=== PATIENT | female | born 1995 | race Hispanic/Latino ===

== ENCOUNTER 2019-03-10 12:25 | Observation (INO) | payer BC ==
[~2019-03-10] VITALS: Ht 162.6 cm; Wt 46.7 kg
[~2019-03-10 12:25] MED LIST: BENTYL10 MG PO; NEXIUM20 MG PO; NEXIUM40 MG PO; NORCO 5-325 TA1 EACH PO; ZOFRAN ODT4 MG SL; tylenol liquid PO
--- OUTSIDE RECORDS SUMMARY | 2019-03-10 12:29 | XMS REPORT | Encounter Summary ---
Author Organization Unknown Address [address] [place] [address] Phone [phone] Care Team Providers Care Ammonia Technician Name Role Phone Hermann Elizalde 3 [phone] Reason for Visit Medical Complaint Instructions 1. Acute upper respiratory infection Bromfed DM 2 mg-30 mg-10 mg/5 mL syrup 2. Feeling feverish rapid flu (A+B) 3. Pain in throat rapid strep group A, throat Discussion Note: None recorded. Patient educational handouts: No information available. Plan of Care Patient Instructions take bromfed as needed. it can cause drowsiness. do not drive will on this medication. follow up pcp Reminders Provider Appointments None recorded. Lab Rapid Flu (A+B) 01/04/2017 [facility] Rapid Strep Group a, Throat 01/04/2017 [facility] Referral None recorded. Procedures None recorded. Surgeries None recorded. Imaging None recorded. Medications Name Start Date Bromfed DM 2 mg-30 mg-10 mg/5 mL syrup Take 10 mL every 4 hours by oral route as needed. Fluzone Quad 1552-0420 60 mcg (15 mcg x 4)/0.5 mL IM suspension IMMUNIZATION GIVEN Medications Administered None recorded. Vitals Height Weight BMI Blood Pressure 5 ft 3 in 115 lbs 20.4 110/60 Lab Results Date Name Result Description Value Range Status Rapid Strep Group a, Throat Result negative Swab Location Left and Right tonsillar pillars Rapid Flu (A+B) Influenza a negative Influenza B negative Allergies Name Reaction Severity Onset NKDA Problems Name Status Onset Date Source Tinea Corporis Active Encounter Acute Sinusitis Active Encounter Tonsillitis Active Encounter Procedures None recorded. Vaccine List Vaccine Type influenza, injectable, quadrivalent 06/19/2016 meningococcal MCV4P 11/13/20150.5 mL tetanus toxoid, unspecified formulation 05/19/2010 Social History Smoking Status Never Smoker Past Encounters 01/04/2017 Acute Upper Respiratory Infection; Feeling Feverish; Pain in Throat MARIN Tapia-C: [address] [place] [address], Ph. History of Present Illness Rrmxe-Gzlkjoibkz-Clcrajs Reported By: Patient HPI: Location: throat. Quality: sore throat, dry cough. Duration: 3days. Severity: moderate. Onset/Timing: gradual. Context: no foreign travel, non-smoker, sick contact. Modifying factors: OTC medication. Associated Symptoms: no sputum production, no shortness of breath, no wheezing, no change in number of pillows needed to sleep at night, no sweats, no significant weight gain, no significant weight loss, no morning cough, no vomiting, no diarrhea, no rash, no nausea, no fever, no headache, sore throat, muscle aches Review of Systems:ROS as noted in the HPI Review of Systems Basic Reported By: Patient Physical Exam Adult Basic, Adult Female Complete, 14-21 Yr Females Reported By: Patient Constitutional: General Appearance: healthy-appearing, well-nourished, well-developed. Level of Distress: NAD. Ambulation: ambulating normally Psychiatric: Mental Status: active and alert Eyes: Lids and Conjunctivae: non-injected, no discharge Kdy-Inrv-Exghd-Throat: Ears: no lesions on external ear, no outer ear tenderness, EACs clear, TMs clear, TM mobility normal. Hearing: no hearing loss. Nose: no lesions on external nose; congestion. Lips, Teeth, and Gums: no mouth or lip ulcers. Oropharynx: moist mucous membranes, no erythema, no exudates, tonsils not enlarged Neck: Neck: trachea midline. Lymph Nodes: no cervical LAD Lungs: Respiratory effort: no dyspnea, no tachypnea, no use of accessory muscles, no intercostal retractions. Auscultation: breath sounds normal, clear to auscultation, no wheezing, no rales/crackles, no rhonchi, no retractions Cardiovascular: Heart Auscultation: RRR, no murmurs
--- OUTSIDE RECORDS SUMMARY | 2019-03-10 12:29 | XMS REPORT | Encounter Summary ---
Author Organization Unknown Address [address] [place] [address] Phone [phone] Care Team Providers Care Rn Perinatal Name Role Phone Hermann Elizalde 3 [phone] Reason for Visit Medical Complaint Instructions 1. Viral upper respiratory tract infection fluticasone 50 mcg/actuation nasal spray,suspension levocetirizine 5 mg tablet 2. Influenza-like symptoms rapid flu (A+B) 3. Pain in throat rapid strep group A, throat sore throat: care instructions Discussion Note Pt is in NAD; Verbalizes understanding of all instructions with no questions at this time. Plan of Care Patient Instructions Stop benadryl. Take fluticasone as needed for congestion. [place] one spray in each nostril twice a day. Take a warm, steamy shower, blow your nose thereafter, and spray in each nostril. Tilt your head up for about 10 seconds and breath through your mouth. Do not sniff or snort the medication in or else the medication will go to your throat and not be absorbed appropriately. Take levocetirizine for runny nose, sneezing, and/or watery eyes. Alternate with Ibuprofen and acetaminophen every 4-6 hrs as needed for pain/fever/headache. Proper hydration and rest. Return to work/school if free of fever for 24-hrs. Do not share any utensils/cups, no kissing, recommend hand washing after coughing/sneezing/blowing nose and cover face when you do so. Take medications as prescribed. Follow up with your PCP within 2-3 days if symptoms worsen as discussed. Reminders Provider Appointments None recorded. Lab Rapid Strep Group a, Throat 11/05/2018 [facility] Rapid Flu (A+B) 11/05/2018 [facility] Referral None recorded. Procedures None recorded. Surgeries None recorded. Imaging None recorded. Medications Name Start Date fluticasone 50 mcg/actuation nasal spray,suspension [place] 2 sprays every day by intranasal route at bedtime for 14 days. Fluzone Quad 8231-3210 60 mcg (15 mcg x 4)/0.5 mL IM suspension IMMUNIZATION GIVEN levocetirizine 5 mg tablet Take 1 tablet every day by oral route at bedtime for 10 days. tetanus-diphtheria toxoids-Td 2 Lf unit-2 Lf unit/0.5 mL IM suspension IMMUNIZATION GIVEN Medications Administered None recorded. Vitals Height Weight BMI Blood Pressure 5 ft 3 in 115 lbs 20.4 kg/m2 106/66 mm[Hg] Lab Results Date Name Specimen Result Interpretation Description Value Range Status Address Rapid Flu (A+B) Influenza a negative [facility]: [address] [place] [address] Influenza B negative [facility]: [address] [place] [address] Rapid Strep Group a, Throat Result negative [facility]: [address] [place] [address] Swab Location Left and Right tonsillar pillars [facility]: [address] [place] [address] Allergies Code Code System Name Reaction Severity Status Onset NKDA Problems Name Status Onset Date Source Pain in Throat Active 11/05/2018 Viral Upper Respiratory Tract Infection Active 11/05/2018 Influenza-like Symptoms Active 11/05/2018 Procedures None recorded. Vaccine List Vaccine Type influenza, injectable, quadrivalent 06/20/2016 influenza, unspecified formulation 08/20/2018 meningococcal MCV4P 11/13/20150.5 mL Td (adult) 06/25/2017 tetanus toxoid, unspecified formulation 05/20/2010 Social History Smoking Status Never Smoker Past Encounters 11/05/2018 Viral Upper Respiratory Tract Infection; Influenza-like Symptoms; Pain in Throat Na Hart [facility]: [address] [place] [address], Ph. History of Present Illness Cegpgeg-Gwrte-Cbn Reported By: Patient HPI: Duration: 4 days. Severity: highest temperature 99.2. Onset/Timing: first recorded 11-05-18 in clinic. Context: no ill contacts, no tick/insect bites, no recent travel, no new medications. Associated Symptoms: no muscle aches, no rash, no lethargy, fever/chills, headache, cold symptoms, nasal passage blockage (stuffiness), nasal discharge; sneezing, mild sore throat, and body aches. Modifying Factors nothing gives relief Review of Systems:ROS as noted in the HPI Review of Systems Basic Reported By: Patient Physical Exam Adult Basic, Adult Male Complete Reported By: Patient Constitutional: General Appearance: healthy-appearing, well-nourished, well-developed. Level of Distress: NAD. Ambulation: ambulating normally Psychiatric: Mental Status: active and alert. Orientation: to time, to place, to person Eyes: Lids and Conjunctivae: non-injected, no discharge, no pallor. Corneas: grossly intact. Lens: clear Yom-Uspr-Chahg-Throat: Ears: no lesions on external ear, no outer ear tenderness, EACs clear, TMs clear. Hearing: no hearing loss. Nose: no lesions on external nose, nares patent, no septal deviation, nasal passages clear, no sinus tenderness, nasal discharge--rhinorrhea, post nasal drip; B/L NTs pink and edematous. Lips, Teeth, and Gums: no mouth or lip ulcers, no bleeding gums, normal dentition. Oropharynx: moist mucous membranes, no erythema, no exudates, tonsils not enlarged Neck: Neck: supple. Lymph Nodes: no cervical LAD Lungs: Respiratory effort: no dyspnea, no tachypnea, no use of accessory muscles, no intercostal retractions. Auscultation: breath sounds normal, good air movement Cardiovascular: Heart Auscultation: RRR, no murmurs Neurologic: Gait and Station: normal gait, normal station. Cranial Nerves: grossly intact
--- OUTSIDE RECORDS SUMMARY | 2019-03-10 12:29 | XMS REPORT | Encounter Summary ---
Author Organization Unknown Address [address] [place] [address] Phone [phone] Care Team Providers Care Gas Pumper Name Role Phone Hermann Elizalde 3 [phone] Reason for Visit Medical Complaint Instructions 1. [...] by oral route as needed. Fluzone Quad [id number] 60 mcg (15 mcg x 4)/0.5 mL [...] Feverish; Pain in Throat MARIN Tapia-C: [address] [place] [address], Ph. History of Present Illness Tgcqp-Dmzgailgfm-Dwmwgxs Reported By: Patient HPI: Location: throat. Quality: [...] Eyes: Lids and Conjunctivae: non-injected, no discharge Kct-Aruz-Touky-Throat: Ears: no lesions on external ear, no [...]
--- OUTSIDE RECORDS SUMMARY | 2019-03-10 12:29 | XMS REPORT | Continuity of Care Document ---
Author Author [facility] Interface Address Unknown Phone Unavailable Problems Problem Status Onset Date Classification Date Reported Comments Source Pain in throat 11/05/2018 Diagnosis 11/05/2018 [facility] Influenza-like symptoms 11/05/2018 Diagnosis 11/05/2018 [facility] Viral upper respiratory tract infection 11/05/2018 Diagnosis 11/05/2018 [facility] Pain in Throat 11/05/2018 Problem 11/05/2018 [facility] Viral Upper Respiratory Tract Infection 11/05/2018 Problem 11/05/2018 [facility] Influenza-like Symptoms 11/05/2018 Problem 11/05/2018 [facility] Pruritic rash 08/17/2017 Diagnosis 08/17/2017 [facility] Acute upper respiratory infection 01/04/2017 Diagnosis 01/04/2017 [facility] Feeling feverish 01/04/2017 Diagnosis 01/04/2017 [facility] Tinea Corporis Problem 08/17/2017 [facility] Acute Sinusitis Problem 08/17/2017 [facility] Tonsillitis Problem 08/17/2017 [facility] Medications Medication Details Route Status Patient Instructions Ordering Provider Order Date Source influenza A virus A/[place] (H1N1) antigen 0.03 MG/ML / influenza A virus A/[id number] (H3N2) antigen 0.03 MG/ML / influenza B virus B/[place] antigen 0.03 MG/ML / influenza B virus B/[facility] antigen 0.03 MG/ML Injectable Suspension Fluzone Quad 2014- 2015 60 mcg (15 mcg x 4)/0.5 mL IM suspension IMMUNIZATION GIVEN Active [facility] Hydroxyzine Hydrochloride 25 MG Oral Tablet hydroxyzine HCl 25 mg tablet 1/2-1 tab po every 6 hrs prn itching Active [facility] Medrol (Eric) 4 mg tablets in a dose pack Medrol (Eric) 4 mg tablets in a dose pack Take by oral route as directed on package Active [facility] Fluticasone propionate 0.05 MG/ACTUAT Metered Dose Nasal [place] fluticasone 50 mcg/actuation nasal spray,suspension [place] 2 sprays every day by intranasal route at bedtime for 14 days. Active [facility] levocetirizine dihydrochloride 5 MG Oral Tablet levocetirizine 5 mg tablet Take 1 tablet every day by oral route at bedtime for 10 days. Active [facility] 0.5 ML diphtheria toxoid vaccine, inactivated 4 UNT/ML / tetanus toxoid vaccine, inactivated 4 UNT/ML Injection tetanus-diphtheria toxoids- Td 2 Lf unit-2 Lf unit/0.5 mL IM suspension IMMUNIZATION GIVEN Active [facility] Brompheniramine Maleate 0.4 MG/ML / Dextromethorphan Hydrobromide 2 MG/ML / Pseudoephedrine Hydrochloride 6 MG/ML Oral Solution [Bromfed DM] Bromfed DM 2 mg-30 mg-10 mg/5 mL syrup Take 10 mL every 4 hours by oral route as needed. Active [facility] Allergies, Adverse Reactions, Alerts Substance Category Reaction Severity Reaction type Status Date Reported Comments Source Immunizations Immunization Date Given Site Status Last Updated Comments Source influenza, unspecified formulation 08/20/2018 completed [facility] Td (adult) 06/25/2017 completed [facility] influenza, injectable, quadrivalent 06/20/2016 completed [facility] meningococcal MCV4P 11/13/2015 completed [facility] tetanus toxoid, unspecified formulation 05/20/2010 completed [facility] Results Order Name Results Value Reference Range Date Interpretation Comments Source Influenza A negative 11/05/2018 [facility] Influenza B negative 11/05/2018 [facility] RESULT negative 11/05/2018 [facility] SWAB LOCATION Left and Right tonsillar pillars 11/05/2018 [facility] RESULT negative 08/17/2017 [facility] SWAB LOCATION Left and Right tonsillar pillars 08/17/2017 [facility] RESULT negative 01/04/2017 [facility] SWAB LOCATION Left and Right tonsillar pillars 01/04/2017 [facility] Influenza A negative 01/04/2017 [facility] Influenza B negative 01/04/2017 [facility] Vital Signs Vital Sign Value Date Comments Source Diastolic (mm Hg) 66 11/05/2018 [facility] Height 63 11/05/2018 [facility] Systolic (mm Hg) 106 11/05/2018 [facility] Weight 115 11/05/2018 [facility] Diastolic (mm Hg) 80 08/17/2017 [facility] Height 63 08/17/2017 [facility] Systolic (mm Hg) 132 08/17/2017 [facility] Weight 115 08/17/2017 [facility] Diastolic (mm Hg) 60 01/04/2017 [facility] Height 63 01/04/2017 [facility] Systolic (mm Hg) 110 01/04/2017 [facility] Weight 115 01/04/2017 [facility] Encounters Location Location Details Encounter Type Encounter Number Reason For Visit Attending Provider ADM Date DC Date Status Source [place] - [facility] - [id number] ART TapiaP-C: [address], [place] [address], Ph. [id number] Rashawn Red 01/04/2017 [facility] [place] - [facility] - [id number] ART TapiaP-C: [address], [place] [address], Ph. [id number] Rashawn Red 01/04/2017 [facility] [place] - [facility] - [id number] FRANTZ AndersonC: [address], [place] [address], Ph. [id number] Akosua Medellin 08/17/2017 [facility] [place] - [facility] - [id number] Na Hart [employer] D[employer] MACHINE TENDER-C: [address], [place] [address], Ph. [id number] Na Hart 11/05/2018 [facility] Procedures Procedure Code Date Perfomer Comments Source
--- OUTSIDE RECORDS SUMMARY | 2019-03-10 12:29 | XMS REPORT | Encounter Summary ---
Author Organization Unknown Address [address] [place] [address] Phone [phone] Care Team Providers Care Sap Ppm Consultant Name Role Phone Hermann Elizalde 3 [phone] Reason for Visit Medical Complaint Instructions 1. Pruritic rash rapid strep group A, throat Medrol (Eric) 4 mg tablets in a dose pack hydroxyzine HCl 25 mg tablet Discussion Note: None recorded. Patient educational handouts: No information available. Plan of Care Reminders Provider Appointments None recorded. Lab Rapid Strep Group a, Throat 08/17/2017 [facility] Referral None recorded. Procedures None recorded. Surgeries None recorded. Imaging None recorded. Medications Name Start Date Fluzone Quad [id number] 60 mcg (15 mcg x 4)/0.5 mL IM suspension IMMUNIZATION GIVEN hydroxyzine HCl 25 mg tablet 1/2-1 tab po every 6 hrs prn itching Medrol (Eric) 4 mg tablets in a dose pack Take by oral route as directed on package Medications Administered None recorded. Vitals Height Weight BMI Blood Pressure 5 ft 3 in 115 lbs 20.4 kg/m2 132/80 mm[Hg] Lab Results Date Name Specimen Result Interpretation Description Value Range Status Address Rapid Strep Group a, Throat Result negative [facility]: [address] [place] [address] Swab Location Left and Right tonsillar pillars [facility]: [address] [place] [address] Allergies Code Code System Name Reaction Severity Status Onset NKDA Problems Name Status Onset Date Source Tinea Corporis Active Encounter Acute Sinusitis Active Encounter Tonsillitis Active Encounter Procedures None recorded. Vaccine List Vaccine Type influenza, injectable, quadrivalent 06/20/2016 meningococcal MCV4P 11/13/20150.5 mL tetanus toxoid, unspecified formulation 05/20/2010 Social History Smoking Status Never Smoker Past Encounters 08/17/2017 Pruritic Rash Akosua Medellin PA-C: [address] [place] [address], Ph. History of Present Illness Ejjy-Oqeizqs-Glwiw-Skin Lesion-Bite 1 Reported By: Patient HPI: Location: abdomen, back. Quality: itchy, red. Duration: has noted for 1-2 weeks. Onset/Timing: gradual onset. Context: no new detergents or skin products, no one else with similar rash, no sting or bite; putting OTC itch ointment, saw dermatology for similar rash years ago, no diagnosis was able to be made, rash resolved in 3 months. Aggravating factors: nothing makes it worse. Alleviating factors: nothing gives relief. Associated Symptoms: no fever/chills, no muscle aches, no headache, no cold symptoms, no nausea, no vomiting, no diarrhea, no urinary symptoms Review of Systems Basic Reported By: Patient Constitutional: Constitutional: no fever Eyes: Eyes: no eye complaints Waiw-Olju-Pdupj-Throat: Ears: no ear complaints. Nose: no nose/sinus problems. Mouth/Throat: no sore throat Cardiovascular: Cardiovascular: no chest pain, no shortness of breath, no known heart murmur Respiratory: Respiratory: no cough, no wheezing, no shortness of breath Gastrointestinal: Gastrointestinal: no abdominal pain, no vomiting / diarrhea Musculoskeletal: Musculoskeletal: no muscle aches, no arthralgias/joint pain, no back pain Skin: Skin: rash, itching Neurologic: Neurologic: no dizziness, no headaches Physical Exam Adult Basic, 14-21 Yr Females Reported By: Patient Constitutional: General Appearance: healthy-appearing, well-nourished, well-developed. Ambulation: ambulating normally Psychiatric: Mental Status: active and alert, normal affect, normal mood. Orientation: to time, to place, to person Eyes: Lids and Conjunctivae: non-injected, no discharge Pgl-Nrcx-Edwgh-Throat: Ears: no lesions on external ear, no outer ear tenderness, EACs clear, TMs clear. Nose: no lesions on external nose, nares patent, no septal deviation, nasal passages clear, no sinus tenderness, no nasal discharge. Lips, Teeth, and Gums: no mouth or lip ulcers. Oropharynx: moist mucous membranes, no exudates, tonsils not enlarged, erythema Neck: Neck: supple, trachea midline, no masses, FROM. Lymph Nodes: no cervical LAD Lungs: Respiratory effort: no dyspnea, no tachypnea, no use of accessory muscles, no intercostal retractions. Auscultation: breath sounds normal, clear to auscultation, no wheezing, no rales/crackles, no rhonchi, no retractions Cardiovascular: Heart Auscultation: RRR, no murmurs, no gallops, no rub Musculoskeletal:: Extremities: no cyanosis, no edema Skin: Inspection and palpation: rash
[2019-03-10] MEDS ORDERED: SODIUM CHLORIDE 0.9% 1000ML 1,000 ML ONE (12:41)
[2019-03-10] MEDS ORDERED: SODIUM CHLORIDE 0.9% 1000ML 1,000 ML IV ONE (12:45)
[2019-03-10] MEDS ORDERED: LORAZEPAM INJ 2 MG/ML VIAL IV ONE ×3 (12:45→15:00)
[2019-03-10] MEDS ORDERED: METOPROLOL TARTRATE INJ 1 MG/ML VIAL IV ONE (15:00)
[2019-03-10 15:30] LABS: BASOPHILS % 0.1 % (0.0-1.0); EOSINOPHILS # (AUTO) 0.1 (0.0-0.4); EOSINOPHILS % 0.7 % (0.0-6.0); HEMATOCRIT 36.8 % (34.2-44.1); HEMOGLOBIN 13.6 g/dL (12.0-16.0); LYMPHOCYTES # (AUTO) 2.2 (1.0-3.2); LYMPHOCYTES % 24.5 % (18.0-39.1); MEAN CORPUSCULAR HEMOGLOBIN 34.1 pg (28-32); MEAN CORPUSCULAR VOLUME 92.2 fL (81-99); MONOCYTES # (AUTO) 0.4 (0.2-0.8); MONOCYTES % 4.7 % (4.4-11.3); NEUTROPHILS # (AUTO) 6.2 (2.1-6.9); NEUTROPHILS % 69.9 % (38.7-80.0); PLATELET COUNT 165 x10e3/uL (140-360); RED BLOOD COUNT 3.99 x10e6/uL (3.6-5.1); RED CELL DISTRIBUTION WIDTH 11.6 % (11.7-14.4)
[2019-03-10 15:56] LABS: ALANINE AMINOTRANSFERASE 9 IU/L (0-55); ALBUMIN 3.8 g/dL (3.5-5.0); ALBUMIN/GLOBULIN RATIO 1.5 (0.8-2.0); ALKALINE PHOSPHATASE 60 IU/L (40-150); ANION GAP 9.2 mmol/L (8-16); BLOOD UREA NITROGEN 10 mg/dL (7-26); BUN/CREATININE RATIO 14 (6-25); CALCIUM 8.7 mg/dL (8.4-10.2); CARBON DIOXIDE 22 mmol/L (22-29); CHLORIDE 109 mmol/L (98-107); EST GLOMERULAR FILTRATION RATE > 60 ML/MIN (60-); GLUCOSE 100 mg/dL (74-118); MAGNESIUM 1.9 MG/DL (1.3-2.1); POTASSIUM 3.2 mmol/L (3.5-5.1); SODIUM 137 mmol/L (136-145)
--- NOTE | 2019-03-10 16:14 | Diagnostic Imaging Report ---
Exam: Head CT without contrast History: New onset seizure, anxiety. Comparison studies: None available on the PACS at the time of dictation. Technique: Axial images were obtained from the skull base to the vertex. Coronal and sagittal images reconstructed from the axial data. Dose modulation, iterative reconstruction, and/or weight based adjustment of the mA/kV was utilized to reduce the radiation dose to as low as reasonably achievable. Radiation dose: Total DLP: 1382 mGy*cm. Estimated effective dose: DLP x 0.015 Intravenous contrast: None Findings: Scalp: No abnormalities. Bones: No fractures, blastic or lytic lesions. Brain sulci: Appropriate for age. Ventricles: Normal in size and configuration. No hydrocephalus. Extra-axial spaces: No masses, no fluid collection. Parenchyma: No abnormal densities. No masses, hemorrhage, acute or chronic vascular insults. Sellar/suprasellar region: No abnormalities. Craniocervical junction: Patent foramen magnum. No Chiari one malformation. Incidental findings: Small nonspecific secretions in the right sphenoid sinus an small retention cyst or polyp in the right maxillary sinus IMPRESSION: No acute intracranial abnormalities. Signed by: Dr. Jt Encarnacion M.D. on 03/10/2019 4:10 PM
[2019-03-10] MEDS ORDERED: SODIUM CHLORIDE 0.9% 1000ML 1,000 ML IV STA (16:26)
[2019-03-10] MEDS ORDERED: ONDANSETRON HCL INJ 2MG/ML 2ML 2 MG/ML VIAL IV PRN (17:00)
[2019-03-10] MEDS ORDERED: LORAZEPAM INJ 2 MG/ML VIAL IV PRN (17:00)
[2019-03-10] MEDS ORDERED: SODIUM CHLORIDE FLUSH 10 ML SYR INJ PRN (17:00)
--- OUTSIDE RECORDS SUMMARY | 2019-03-10 17:07 | XMS REPORT ---
Author Author [facility] Address Unknown Phone Unavailable Care Team Providers Care Security Guard Name Role Phone Chetan CABALLERO Unavailable Unavailable Problems This patient has no known problems. Allergies, Adverse Reactions, Alerts This patient has no known allergies or adverse reactions. Medications This patient has no known medications. Results Test Description Test Time Test Comments Text Results Atomic Results Result Comments CT BRAIN WO 2019-03-10 16:01:00 [place] [address] Patient Name: DAXA THOMAS MR #: [id number] : 1995 Age/Sex: 24/F Req #: [id number] Adm Physician: Ordered by: RAMÍREZ CABALLERO MD Report #: [id number] Location: ER Room/Bed: Procedure: [id number] CT/CT BRAIN WO Exam Date: 03/10/19 Exam Time: 1500 REPORT STATUS: Signed Exam: Head CT without contrast History: New onset seizure, anxiety. Comparison studies: None available on the PACS at the time of dictation. Technique: Axial images were obtained from the skull base to the vertex. Coronal and sagittal images reconstructed from the axial data. Dose modulation, iterative reconstruction, and/or weight based adjustment of the mA/kV was utilized to reduce the radiation dose to as low as reasonably achievable. Radiation dose: Total DLP: 1382 mGy*cm. Estimated effective dose: DLP x 0.015 Intravenous contrast: None Findings: Scalp: No abnormalities. Bones: No fractures, blastic or lytic lesions. Brain sulci: Appropriate for age. Ventricles: Normal in size and configuration. No hydrocephalus. Extra-axial spaces: No masses, no fluid collection. Parenchyma: No abnormal densities. No masses, hemorrhage, acute or chronic vascular insults. Sellar/suprasellar region: No abnormalities. Craniocervical junction: Patent foramen magnum. No Chiari one malformation. Incidental findings: Small nonspecific secretions in the right sphenoid sinus an small retention cyst or polyp in the right maxillary sinus IMPRESSION: No acute intracranial abnormalities. Signed by: Dr. Cora Farooq M.D. on 03/10/2019 4:10 PM Dictated By: CORA FAROOQ MD [id number] Transcribed By: RENY on 03/10/19 1610 COPY TO: RAMÍREZ CABALLERO MD
[2019-03-10] MEDS ORDERED: POTASSIUM CHLORIDE 20 MEQ TAB CR PO ONE (18:30)
--- NOTE | 2019-03-10 18:41 | NUR ---
received pt in stretcher from ER. AAOx4, no c/o pain or SOB at this time. oriented to room and use of call light for assistance. call light placed within reach.
[2019-03-10] MEDS: PROPRANOLOL HCL 10 MG TAB PO SCH (18:48)
[2019-03-10 19:29] VITALS: BP 121/64
[2019-03-10 20:00] VITALS: BP 120/66
[2019-03-10 21:15] VITALS: BP 121/64
[2019-03-11] VITALS: BP 101/59
[2019-03-11 04:00] VITALS: BP 105/63
--- NOTE | 2019-03-11 06:38 | NUR ---
THE PATIENT IS LAYING IN BED REPORTS NO PAIN OR DISCOMFORT. BED LOW, WHEELS LOCKED AND CALL LIGHT WITHIN REACH. IV PATENT.
[2019-03-11 08:00] VITALS: BP 99/63
[2019-03-11] MEDS ORDERED: ACETAMINOPHEN 325 MG TAB PO PRN (08:00)
[2019-03-11] MEDS ORDERED: ONDANSETRON HCL INJ 2MG/ML 2ML 2 MG/ML VIAL IV PRN (08:00)
[2019-03-11 08:04] VITALS: BP 99/63
[2019-03-11] MEDS: PROPRANOLOL HCL 10 MG TAB PO SCH (08:14)
[2019-03-11 08:43] LABS: BASOPHILS % 0.2 % (0.0-1.0); EOSINOPHILS # (AUTO) 0.1 (0.0-0.4); EOSINOPHILS % 1.3 % (0.0-6.0); HEMATOCRIT 39.7 % (34.2-44.1); HEMOGLOBIN 14.7 g/dL (12.0-16.0); LYMPHOCYTES # (AUTO) 1.4 (1.0-3.2); LYMPHOCYTES % 26.3 % (18.0-39.1); MEAN CORPUSCULAR VOLUME 91.9 fL (81-99); MONOCYTES # (AUTO) 0.2 (0.2-0.8); NEUTROPHILS # (AUTO) 3.6 (2.1-6.9); NEUTROPHILS % 67.8 % (38.7-80.0); PLATELET COUNT 180 x10e3/uL (140-360); RED BLOOD COUNT 4.32 x10e6/uL (3.6-5.1); RED CELL DISTRIBUTION WIDTH 11.6 % (11.7-14.4)
[2019-03-11 09:06] LABS: ANION GAP 12.1 mmol/L (8-16); BLOOD UREA NITROGEN 7 mg/dL (7-26); BUN/CREATININE RATIO 10 (6-25); CALCIUM 9.8 mg/dL (8.4-10.2); CARBON DIOXIDE 23 mmol/L (22-29); CHLORIDE 107 mmol/L (98-107); EST GLOMERULAR FILTRATION RATE > 60 ML/MIN (60-); GLUCOSE 111 mg/dL (74-118); POTASSIUM 4.1 mmol/L (3.5-5.1); SODIUM 138 mmol/L (136-145)
[2019-03-11] MEDS ORDERED: LORAZEPAM 0.5 MG TAB PO PRN (09:45)
[2019-03-11 09:48] LABS: PREGNANCY TEST, URINE NEGATIVE (NEGATIVE)
[2019-03-11 09:56] LABS: BILIRUBIN,URINE NEGATIVE (NEGATIVE); CLARITY,URINE CLEAR (CLEAR); COLOR,URINE YELLOW (YELLOW); KETONES,URINE NEGATIVE (NEGATIVE); LEUKOCYTE ESTERASE ,URINE NEGATIVE (NEGATIVE); NITRITE,URINE NEGATIVE (NEGATIVE); PROTEIN,URINE DIPSTICK NEGATIVE (NEGATIVE); URINE UROBILINOGEN 0.2 mg/dL (0.2 - 1)
[2019-03-11 10:01] LABS: AMPHETAMINES SCREEN,URINE NEGATIVE (NEGATIVE); BENZODIAZEPINES SCREEN,URINE NEGATIVE (NEGATIVE); PHENCYCLIDINE SCREEN,URINE NEGATIVE (NEGATIVE)
[2019-03-11 10:04] LABS: BACTERIA,URINE FEW /HPF; EPITHELIAL CELLS,URINE MODERATE /LPF
[2019-03-11 12:09] VITALS: BP 105/64
[2019-03-11] MEDS ORDERED: CLONAZEPAM 0.5 MG TAB PO ONE (14:00)
[2019-03-11] MEDS ORDERED: CLONAZEPAM 0.5 MG TAB PO PRN (14:00)
[2019-03-11] MEDS ORDERED: CLONAZEPAM0.5 MG PO (16:19)
[2019-03-11] MEDS ORDERED: REMERON15 MG PO (16:20)
--- NOTE | 2019-03-11 16:35 | NUR ---
spoke to and received order to d/c patient home with work/school excuse to return 03/16/19. per Psychiatry, february d/c home and f/u in office in 1 week, RX left in chart.
[2019-03-11 16:44] VITALS: BP 112/72
--- NOTE | 2019-03-11 16:50 | History and Physical ---
CHIEF COMPLAINT: Anxiety, panic attacks. HISTORY OF PRESENT ILLNESS: This is a 24-year-old female, who apparently had history of panic attacks in the past, has not followed up with primary care physician or a psychiatrist, presents while she was there for yesterday with acute panic attack. Further, the patient reports that over the last one year, she has had six or seven episodes where she will suddenly have a panic attack, heart will start to raise. She is diaphoretic. Hates to be in very large spaces and is able to cope with by taking deep breaths and staying quiet. She does not take any medications for the panic attacks. She reports that these have been ongoing due to stress from work, home and many other issues as well. She denies any other complaints at home, except for lot of stress related to school work. Yesterday, she had similar findings in began to become very diaphoretic, tachypneic and tachycardic and was seen in the ER for further evaluation. There was no reports of any seizure-like activity. The patient has no seizure history in the past. The patient was alert, awake, oriented and conscious throughout these episodes and was able to comprehend exactly what the physicians in the ER were telling her. The patient was seen and evaluated at bedside on the medical floor. Currently, she is doing well with no other issues at this time. REVIEW OF SYSTEMS: Pertinent positive: History of panic attacks. Pertinent negative: Denies any chest pain, nausea, vomiting, diarrhea, dysuria, hematuria, frequency, urgency, lightheadedness, dizziness, abdominal pain, headaches, cough, congestion, fever, or any other complaints. The rest of 14-point review of systems are reviewed with the patient and are negative. ALLERGIES: CIPRO. HOME MEDICATIONS: She takes Bentyl 20 mg every 6 hours as needed, Zofran 4 mg sublingual q.6 hours p.r.n. for nausea. PAST MEDICAL HISTORY: Reports a history of panic attacks in the past. Has not seeked any treatment. PAST SURGICAL HISTORY: Reports none. FAMILY HISTORY: Hypertension, diabetes. SOCIAL HISTORY: No drugs. No alcohol. Does not smoke. Good social support. PHYSICAL EXAMINATION: VITAL SIGNS: Temperature is 97.7, pulse 78, respiratory rate is 18, blood pressure is pulse ox 98% on room air. GENERAL: Not in acute distress. Alert and oriented x3. Cooperative on examination. HEENT: Head is normocephalic and atraumatic. Eyes; pupils are equal, round, and reactive to light bilaterally. Extraocular movements are intact bilaterally. Throat, no evidence of any erythema or exudates in the posterior pharynx. Has poor dentition. NECK: Supple. Good range of motion. PULMONARY: Clear to auscultation bilaterally. No wheezing, no rales, no rhonchi, no crackles appreciated. CARDIOVASCULAR: Positive S1, S2. No murmurs, rubs, or gallops appreciated. ABDOMEN: Soft, nondistended, and nontender to palpation. Bowel sounds present. MUSCULOSKELETAL: Strength is 5/5 throughout. No evidence of any muscle deficits on examination. No weakness appreciated. NEUROLOGICAL: Cranial nerves II through XII grossly intact. No evidence of any neurological deficits on exam. SKIN: Intact. Warm to touch. Good cap refill. PSYCHIATRIC: Normal affect and mood. EXTREMITIES: No edema. Good range of motion throughout. LABORATORY DATA: Lab findings show white count of 5.2, hemoglobin 14.7, hematocrit 39, and platelets of 180. Chemistry; sodium 138, potassium 4.1 chloride 107, bicarb 23, anion gap of 12, BUN 7, creatinine is 0.7, glucose 111, calcium 9.8. LFTs were normal. Albumin 3.8. Urinalysis was pending. Urine drug screen was pending. MICROBIOLOGY: None. IMAGING STUDIES: CT brain was found to be negative. IMPRESSION: 1. Anxiety acute panic attack with history of panic attack in the past. 2. Irritable bowel syndrome. PLAN: At this time, there are no reports of any seizure-like activity. The patient apparently had this problem in the past about six to seven times over the course of one year and it did resolve on their own. She has not seen a physician in relation to these issues. She reports a lot of stressors at work, multiple stressors at home as well as her personal life leading to these possible panic attacks. At this time, we will go ahead and consult with Psychiatry to further evaluate this patient. She may need to be on some angiolytic and other medications to help with her and cope with these particular anxiety issues. At this time, she is alert, awake, and oriented. No issues at this current moment. We will have p.r.n. medications in the event she does have a panic attack. She is currently on propranolol used for anxiety, which is very helpful as well. She otherwise is stable at this current moment. There is no reports of any history of seizures in the past. Once again, she reports that she was conscious situation on yesterday and has been even in the past. At this time, we will continue with the same plan of care and await for psychiatry recommendations of further assessment. Otherwise, her imaging studies were found to be negative. We are still pending on a urine drug screen as well. MD SHEELA Velásquez/OMER /[id number]
--- NOTE | 2019-03-11 16:57 | NUR ---
PIV removed with tip intact, property assessment monitor removed. d/c instructions explained and RX given to patient. education handouts in regards to new medications also provided. patient expressed no concerns or questions when asked and verbalized understanding. all personal belongings, D/c instructions and RX in hand at time of d/c. escorted to front lobby door where friend awaited in private auto. safely transferred into auto.
--- NOTE | 2019-03-11 20:50 | Consultation ---
DATE OF CONSULTATION: 03/11/2019 Psychiatric Consultation REASON FOR CONSULTATION: To evaluate the patient's mood and anxiety. HISTORY OF PRESENT ILLNESS: The patient is a 24-year-old female admitted to the hospital for panic attack. Psychiatric consultation is called to evaluate the patient's mood. Upon evaluation today, the patient was found to be in the room with a friend. She agrees to have the friend to be present during the assessment. The patient is alert, awake, and oriented to situation. The patient appears to be depressed at this time. Affect is congruent with mood. The patient states that she has been feeling anxiety and panic attacks, especially in crowded place. She claims that it has been ongoing for many months. She denies being on any medication for this. She also reports having depression due to family situation, but refuses to elaborate. She denies feeling hopeless or helpless. She denies any suicidal or homicidal ideation. She denies any hallucination. She reports poor sleep and states she sleeps about 2 or 3 hours at night for the last six months. She denies any issue with appetite. She denies any manic symptoms. The patient is concerned that she may be . Urine test is negative during this hospitalization. As per nursing staff, the patient was very anxious in the ER. She required multiple doses of Ativan. PAST PSYCHIATRIC HISTORY: The patient states that she has never been diagnosed with any past psychiatric history. She denies past suicide attempts. She denies any drug use. She claims she drinks socially. FAMILY HISTORY: Denies. SOCIAL HISTORY: The patient states she lives with her parents. MENTAL STATUS EXAM: The patient is a young female. She is alert, awake, and oriented to situation. Her mood is anxious and depressed. Her affect is congruent with mood. Insight and judgment are fair. Psychomotor state, has retardation. Thought process is concrete. No delusion elicited. CURRENT MEDICATIONS: 1. Propranolol. 2. Ativan 0.5 mg three times a day as needed. 3. Ondansetron. 4. Tylenol. 5. Sodium chloride. CURRENT LABS: Sodium 137, potassium 3.2, chloride 109, CO2 of 22, BUN 10, creatinine 0.7. AST 11, ALT 9. WBC 5.28, RBC 4.32, hemoglobin 14.7, hematocrit 39.7, platelets 180. Toxicology is negative. Urine test negative. ASSESSMENT: 1. Adjustment disorder with mixed mood. 2. Panic disorder with agoraphobia. 3. Rule out major depression. PLAN: 1. To add Klonopin 0.5 mg three times a day as needed. 2. Add Remeron 15 mg p.o. q.h.s. 3. Monitor for mood. 4. Supportive therapy. 5. Discussed medication options with the patient. She agrees with current plan. 6. She will recommend followup with outpatient Psychiatry. 7. Follow up within one week. 8. Thank you for this consultation. 9. The patient is cleared from psych standpoint. Dictated by Adrianna Peacock PA-C MD CARMELO HartV/OBEYL /[id number]
[2019-03-11] MEDS ORDERED: MIRTAZAPINE 15 MG TAB PO SCH (21:00)
--- NOTE | 2019-03-13 03:33 | Discharge Summary ---
FINAL DISCHARGE DIAGNOSES: 1. Adjustment disorder with mixed mood. 2. Panic disorder with agoraphobia. 3. Rule out major depression disorder. COOK FROZEN DESSERT: Psychiatry. PHYSICAL EXAMINATION: VITAL SIGNS: Temperature is 99.3, pulse 80, respiratory rate is 18, blood pressure 112/70, and pulse ox 99% on room air. LAB FINDINGS: Show white count 5.3, hemoglobin 14, hematocrit 39, and platelets of 180. Chemistry; sodium 138, potassium 4.1, chloride 107, bicarb 23, anion gap is 12, BUN 7, creatinine 0.7, glucose 111, calcium 9.8. LFTs were normal. Urinalysis was negative. Urine drug screen was negative. MICROBIOLOGY: None. IMAGING STUDIES: CT brain was found to be negative. HOSPITAL COURSE: This is a 24-year-old female, who presented to the ER after having a panic disorder with anxiety. The patient was given some Ativan and was admitted under observation with a Psychiatry consultation. According to the Psychiatry, the diagnoses were the patient likely has adjustment disorder with mixed mood as well as panic disorder with agoraphobia as well as rule out major depressive disorder. The patient was started on Klonopin 0.5 mg t.i.d. as needed as well as Remeron 15 mg at bedtime. He recommended supportive therapy and monitored the mood. He recommended outpatient followup in his office in about one week time. He did clear the patient for discharge home. The patient otherwise was doing well after initiating these medications. She will return to work back on Friday. The patient reports feeling much better with no other complaints. Back to normal baseline with no other issues at this time. Prescriptions were given to the patient. On the day of discharge, vital signs stable, labs reviewed and stable. The patient was seen, evaluated, examined thoroughly on the day of discharge with no other complaints. The patient verbalized understanding and agreed with plan of care. Follow up as an outpatient with the primary care physician in 1 week and the Psychiatrist in 1 week time. MEDICATIONS: See med reconciliation form. DISPOSITION: Home. CONDITION: Stable. DIET: Heart healthy. In the event of any worsening symptoms, the patient was advised to come back to the ED for further evaluation. Discharge summary took greater than 35 minutes. MD SHEELA Velásquez/OBYEL /[id number]
== END 2019-03-11 16:57 | disposition home or self-care (01) ==
LOC: ER 12:25 → ERHOLD 17:05 → IMCU 18:46
PROVIDERS: ADMIT Internal Medicine; ATTEND Internal Medicine
DX: F41.0 Panic disorder [episodic paroxysmal anxiety] (principal); R06.82 Tachypnea, not elsewhere classified; K58.9 Irritable bowel syndrome, unspecified; F40.01 Agoraphobia with panic disorder; F43.23 Adjustment disorder with mixed anxiety and depressed mood
CPT/HCPCS: 36415 ×2; 70450; 80048; 80053; 80307; 81001; 81025; 83735; 85025 ×2; 99284; G0378 ×2; J2060; J7030

== ENCOUNTER → 2019-08-20 | Outpatient (CLI) | payer BC ==
[~2019-08-20] MED LIST changes: +CLONAZEPAM0.5 MG PO; +REMERON15 MG PO
--- NOTE | 2019-08-20 17:58 | Diagnostic Imaging Report ---
Exam: Pelvic ultrasound. History: Dysmenorrhea Comparison: None Findings: Transabdominal and endovaginal sonographic evaluation of the pelvis. The uterus is anteverted in position, measuring 8.0 x 3.9 x 5.0 cm. No uterine mass identified. Endometrial stripe thickness is 2 mm . The right ovary measures 2.1 x 1.3 x 1.2 cm and appears unremarkable. The left ovary is not well-visualized due to overlying bowel gas. No pelvic free fluid. Impression: Unremarkable appearing uterus and right ovary. Left ovary not well-visualized due to overlying bowel gas. Signed by: Bobby Sorensen MD on 08/20/2019 5:55 PM
== END ==
LOC: US 14:46
PROVIDERS: ATTEND Obstetrics & Gynecology
DX: N94.6 Dysmenorrhea, unspecified (principal)
CPT/HCPCS: 76830; 76856

== ENCOUNTER → 2020-04-20 | Outpatient (CLI) | payer BC ==
--- NOTE | 2020-04-20 10:29 | Diagnostic Imaging Report ---
Exam: Pelvic ultrasound. History: Endometriosis Comparison: Pelvic ultrasound of 08/20/2019 Findings: Transabdominal and endovaginal sonographic evaluation of the pelvis. The uterus is anteverted in position, measuring 8.6 x 3.4 x 5.2 cm. No uterine mass identified. Endometrial stripe thickness is 4 mm . The right ovary measures 3.8 x 2.1 x 2.3 cm and appears unremarkable. The left ovary is not well-visualized due to overlying bowel gas. No pelvic free fluid. Impression: Unremarkable pelvic ultrasound. Left ovary not well-visualized due to overlying bowel gas. Signed by: Bobby Sorensen MD on 04/20/2020 10:26 AM
== END ==
LOC: US 08:45
PROVIDERS: ATTEND Obstetrics & Gynecology
DX: N80.9 Endometriosis, unspecified (principal)
CPT/HCPCS: 76830; 76856

== ENCOUNTER → 2020-06-30 | Day surgery (SDC) | payer BC ==
[~2020-06-30] MED LIST changes: +CEFAZOLIN SOD 1 GM/NS 50ML 100 ML IV ONE; +DEXAMETHASONE SOD PHOS INJ 4 MG/ML VIAL ONE; +FENTANYL CITRATE/PF 100MCG/2 ML INJ ONE; +KETOROLAC TROMETHAMINE 30 MG/ML VIAL ONE; +LIDOCAINE HCL 2% LOCAL INJ 5 ML SDV VIAL INJ ONE; +METHYLERGONOVINE MALEATE 0.2 MG/ML AMP ONE; +METOCLOPRAMIDE HCL 10 MG/2ML VIAL ONE; +MIDAZOLAM HCL 2 MG/2 ML VIAL ONE; +ONDANSETRON HCL INJ 2MG/ML 2ML 2 MG/ML VIAL ONE; +PROMETHAZINE HCL (IM) 25 MG/ML VIAL IM ONE; +PROPOFOL IV EMULSION 10 MG/ML 20 ML VIAL ONE; +SEVOFLURANE INHAL SOLN 250 ML PEN BTL ONE; +SILVER NITRATE SWABS ONE
[2020-06-30 06:21] LABS: BASOPHILS % 0.1 % (0.0-1.0); EOSINOPHILS # (AUTO) 0.1 (0.0-0.4); EOSINOPHILS % 1.2 % (0.0-6.0); HEMATOCRIT 41.1 % (34.2-44.1); HEMOGLOBIN 14.5 g/dL (12.0-16.0); LYMPHOCYTES # (AUTO) 1.6 (1.0-3.2); LYMPHOCYTES % 22.7 % (18.0-39.1); MEAN CORPUSCULAR HEMOGLOBIN 32.7 pg (28-32); MEAN CORPUSCULAR HGB CONC 35.3 g/dL (31-35); MEAN CORPUSCULAR VOLUME 92.8 fL (81-99); MONOCYTES # (AUTO) 0.4 (0.2-0.8); MONOCYTES % 5.1 % (4.4-11.3); NEUTROPHILS # (AUTO) 4.8 (2.1-6.9); NEUTROPHILS % 70.6 % (38.7-80.0); PLATELET COUNT 172 x10e3/uL (140-360); RED BLOOD COUNT 4.43 x10e6/uL (3.6-5.1)
[2020-06-30 09:30] VITALS: BP 112/66
--- NOTE | 2020-06-30 10:34 | Operative Report ---
DATE OF PROCEDURE: 06/30/2020 SURGEON: Abran Riley MD PREOPERATIVE DIAGNOSIS: Missed . POSTOPERATIVE DIAGNOSIS: Missed . PROCEDURE: Suction, dilation and curettage. COMMUNITY ENGAGEMENT LEADER: None. ANESTHESIA: General. ESTIMATED BLOOD LOSS: 400 mL. COMPLICATIONS: None. SPECIMENS: Removed. PRODUCTS OF CONCEPTION: To pathology. TECHNIQUE: The patient was taken to the operating room where anesthesia was administered. She was then prepped and draped in the usual sterile fashion. A weighted speculum was placed in the vagina and the anterior lip of cervix was grasped with single tooth tenaculum. The cervix was sequentially dilated to approximately 1 cm. Methergine 0.2 mg intramuscularly was given at this point. The 8 mm suction curette was then gently advanced to the uterine fundus. The suction device was activated and curette rotated to clear the uterus of products of conception. A sharp curettage was then performed until a gritty texture was noted at the uterine cavity. The suction curette was then reintroduced to clear the uterus of any remaining products of conception. At this point, all instruments were removed from the cervix with good hemostasis from the cervical os. The tenaculum was removed from the cervix. There was some slight bleeding at the tenaculum puncture sites, which was stopped using application of silver nitrate and following this excellent hemostasis was noted. All the remaining instruments removed from the patient's vagina. The patient was woken from general anesthesia and taken to recovery room in good condition. Abran Riley MD BT/MODL /[id number] [place]
== END | disposition home or self-care (01) ==
LOC: OR 05:39
PROVIDERS: ATTEND Obstetrics & Gynecology
DX: O02.1 Missed abortion (principal); F41.9 Anxiety disorder, unspecified; Z01.812 Encounter for preprocedural laboratory examination; Z11.59 Encounter for screening for other viral diseases
CPT/HCPCS: 36415; 59820; 85025; 88305; J0690; J1100; J1885; J2001; J2210; J2250; J2405; J2550; J2704; J2765; J3010; U0002

== ENCOUNTER → 2020-08-02 | Outpatient (CLI) | payer BC ==
[~2020-08-02] MED LIST changes: -CEFAZOLIN SOD 1 GM/NS 50ML 100 ML IV ONE; -DEXAMETHASONE SOD PHOS INJ 4 MG/ML VIAL ONE; -FENTANYL CITRATE/PF 100MCG/2 ML INJ ONE; -KETOROLAC TROMETHAMINE 30 MG/ML VIAL ONE; -LIDOCAINE HCL 2% LOCAL INJ 5 ML SDV VIAL INJ ONE; -METHYLERGONOVINE MALEATE 0.2 MG/ML AMP ONE; -METOCLOPRAMIDE HCL 10 MG/2ML VIAL ONE; -MIDAZOLAM HCL 2 MG/2 ML VIAL ONE; -ONDANSETRON HCL INJ 2MG/ML 2ML 2 MG/ML VIAL ONE; -PROMETHAZINE HCL (IM) 25 MG/ML VIAL IM ONE; -PROPOFOL IV EMULSION 10 MG/ML 20 ML VIAL ONE; -SEVOFLURANE INHAL SOLN 250 ML PEN BTL ONE; -SILVER NITRATE SWABS ONE
== END ==
LOC: LAB 10:19
PROVIDERS: ATTEND Obstetrics & Gynecology
DX: Z32.00 Encounter for pregnancy test, result unknown (principal)
CPT/HCPCS: 36415; 84144; 84702

== ENCOUNTER → 2020-08-23 | Outpatient (CLI) | payer BC ==
--- NOTE | 2020-08-23 16:09 | Diagnostic Imaging Report ---
Exam: Pelvic ultrasound. History: Pelvic pain Comparison: Pelvic ultrasound of 04/20/2020 Findings: Transabdominal and endovaginal sonographic evaluation of the pelvis. The uterus is anteverted in position, measuring 7.2 x 3.7 x 5.6cm. No uterine masses identified. Endometrial stripe thickness is 6 millimeters. The right ovary measures 3.2 x 3.5 x 3.0 cm and contains physiologic follicles. The left ovary is not visualized due to overlying bowel gas. No free fluid in the pelvis. Impression: Unremarkable pelvic ultrasound. Signed by: Bobby Sorensen MD on 08/23/2020 4:05 PM
== END ==
LOC: US 11:47
PROVIDERS: ATTEND Obstetrics & Gynecology
DX: R10.2 Pelvic and perineal pain (principal)
CPT/HCPCS: 76830; 76856

== ENCOUNTER → 2020-10-19 | Outpatient (CLI) | payer OTHER ==
[~2020-10-19] MED LIST changes: +COVID-19 VACC, MRNA(MODERNA)/PF 100 MCG/0.5 ML VIAL IM ONE
== END ==
LOC: VACCPMC 07:30
DX: Z23 Encounter for immunization (principal); Z20.828 Contact with and (suspected) exposure to other viral communicable diseases